=== PATIENT | male | born 1985 | race Caucasian/White ===

== ENCOUNTER 2018-01-13 12:21 | Emergency (ER) | payer OTHER ==
[~2018-01-13] VITALS: Ht 180.3 cm; Wt 73.9 kg
[2018-01-13 12:24] VITALS: BP 120/56
--- NOTE | 2018-01-13 12:59 | ED THROAT/DENTAL COMPLAINT ---
History of Present Illness General Chief Complaint: General Adult Stated Complaint: SWELLING TO TONGUE Source: patient Exam Limitations: no limitations Vital Signs & Intake/Output Vital Signs & Intake/Output Vital Signs Date Time Temp Pulse Resp B/P B/P Pulse O2 O2 Flow FiO2 Mean Ox Delivery Rate 01/13 1224 97.1 86 20 120/56 97 Room Air Allergies Coded Allergies: NO KNOWN ALLERGIES (03/20/11) Triage Note: STATE HE WOKE UP AND HIS TONGUE WAS SWOLLEN AND CRACKED. STATES IT HAS SUBSIDED NOW. STATES HE HAD DIFFICULTY SWALLOWING BUT THAT HAS SUBSIDED ALSO Triage Nurses Notes Reviewed? yes Onset: Gradual Duration: hour(s): Timing: recent history Injury Environment: home HPI: 32YO MALE with hx of daily tobacco use presents to ED complaining of tongue pain and swelling occuring this morning prior to arrival. Patient states he work up with left sided tongue pain which felt like sharp sores. Patient looed at this tongue and it appeared swollen. Patient states at that time he was having trouble swallowing. Pain and swelling have subsided at this time however patient reports to ED for further eval. He states that yesterday he was breaking fluorescent light bulbs and is wondering if he has glass foreign body in his tongue, he states at that time he did not have any pain. (Di Tirado) Past History Travel History Traveled to [place] past 21 day No Medical History Any Pertinent Medical History? see below for history Psychiatric: opioid dependence Surgical History Surgical History: non-contributory Psychosocial History What is your primary language Czech Tobacco Use: Current Daily Use Daily Tobacco Use Amount/Type: => 5 Cigarettes daily ETOH Use: denies use Illicit Drug Use: denies illicit drug use Family History Hx Contributory? No (Di Tirado) Review of Systems Review of Systems Constitutional: Reports: no symptoms. EENTM: Reports: see HPI. Respiratory: Reports: no symptoms. Cardiovascular: Reports: no symptoms. GI: Reports: no symptoms. Genitourinary: Reports: no symptoms. Musculoskeletal: Reports: no symptoms. Skin: Reports: no symptoms. Neurological/Psychological: Reports: no symptoms. Hematologic/Endocrine: Reports: no symptoms. Immunologic/Allergic: Reports: no symptoms. All Other Systems: Reviewed and Negative (Di Tirado) Physical Exam Physical Exam General Appearance: well developed/nourished, no apparent distress, alert, awake Head: atraumatic, normal appearance Eyes: Bilateral: normal appearance. Nose: normal inspection Mouth/Throat: normal mouth inspection, pharynx normal, small possible abrasion to left lateral tongue surface with mild tenderness, no firmness or hard mass palpated, no foreign body detected with palpation or direct visualization, no active bleeding Neck: normal inspection, supple, full range of motion Cardiovascular/Respiratory: no respiratory distress Back: normal inspection, normal range of motion Neurologic/Psych: awake, alert, oriented x 3 Skin: intact, normal color, warm/dry Core Measures ACS in differential dx? No Sepsis Present: No Sepsis Focused Exam Completed? No (Sherry GILES,Di Tovar) Progress Differential Diagnosis: strep pharyngitis, tongue laceration/abrasion, foreign body, thrust, malginancy, leukoplakia Plan of Care: Patient has possible small abrasion to left lateral tongue however physical exam is relatively unremarkable, there is no swelling or erythema, no bleeding. No findings to indicate a foreign body at this time and the patient never felt a piece of glass enter his mouth. Given his nonspecific findings I recommended warm salt water rinses and Listerine rinses. If symptoms do not resolve or if symptoms worsen the patient was given a referral. Patient agrees to plan of care. (Sherry GILES,Di Tovar) Departure Departure Disposition: HOME OR SELF CARE Condition: Stable Clinical Impression Primary Impression: Tongue pain Referrals: Bone Angel SCHWARZ (PCP/Family) Additional Instructions: Follow up with ENT specialist regarding your tongue pain. Rinse twice daily with warm salt water and listerine. Return with worsening symptoms or other concerns, Please note that there might be incidental findings in your evaluation that are unrelated to the current emergency department visit. Please notify your primary care doctor about this emergency department visit in order to obtain and review all of the testing performed so that these incidental findings can be monitored as needed. If you had an x-ray performed, please understand that some fractures may not be seen on the initial set of x-rays. If your symptoms persist you might need a repeat set of x-rays to check for such a fracture. If you had a laceration evaluated, please understand that foreign bodies such as glass or wood may not be visible to the naked eye or on plain x-rays. If the wound becomes red, swollen, increasingly more painful or if there is any drainage from the wound, please have it reevaluated by a physician for the possibility of a retained foreign body. If you're unable to follow up as outlined in the discharge instructions please return to the emergency department. Thank you for choosing the [facility] Emergency Department for your care. It was a pleasure to serve you today. Departure Forms: Customer Survey General Discharge Information (Sherry GILES,Di Tovar) PA/MACHINE HOSTLER Co-Sign Statement Statement: ED Attending supervision documentation- [] I saw and evaluated the patient. I have also reviewed all the pertinent lab results and diagnostic results. I agree with the findings and the plan of care as documented in the PA's/MACHINE HOSTLER's documentation. [X] I have reviewed the ED Record and agree with the PA's/MACHINE HOSTLER's documentation. [] Additions or exceptions (if any) to the PAs/MACHINE HOSTLER's note and plan are summarized below: [] (Hazel SCHWARZ,Sushil Perez)
== END 2018-01-13 13:07 ==
LOC: ERH 12:21
DX: K14.6 Glossodynia (principal)

== ENCOUNTER 2018-01-26 00:01 | Emergency (ER) | payer OTHER | END 2018-01-26 01:28 | disposition admitted as inpatient to this hospital (09) | LOC: ERH 00:01 | DX: L29.9 Pruritus, unspecified (principal) ==